=== PATIENT | male | born 1970 | race Caucasian/White ===

== ENCOUNTER 2018-07-05 12:06 | Emergency (ER) | payer OTHER ==
[~2018-07-05] VITALS: Ht 167.6 cm; Wt 105.7 kg
[2018-07-05] MEDS ORDERED: VISTARIL50 MG PO (15:50)
[2018-07-05] MEDS ORDERED: TYLENOL325 MG (16:08)
== END 2018-07-05 16:15 | disposition home or self-care (01) ==
LOC: ER 12:06
DX: R00.2 Palpitations (principal); F41.1 Generalized anxiety disorder